=== PATIENT | male | born 1990 | race Caucasian/White ===

== ENCOUNTER 2016-12-23 08:31 | Emergency (ER) | payer BC ==
[~2016-12-23] VITALS: Ht 175.3 cm; Wt 90.0 kg
[2016-12-23 08:34] VITALS: BP 207/97; PULSE 80; RESP 16; TEMP 97.5; O2SAT 100
[2016-12-23] MEDS ORDERED: oxyCODONE/ACETAMINOPHEN 5 MG/325 MG TAB PO ONE (09:00)
[2016-12-23] MEDS ORDERED: BUPIVACAINE HCL PF 0.25% 10 ML VIAL NERV BLOCK ONE (09:00)
--- NOTE | 2016-12-23 09:04 | PD ---
HPI Chief Complaint: Oral / Dental Pain or Problem Time Seen by Provider: 08:52 Travel History International Travel<30 days: No Contact w/Intl Traveler<30days: No Traveled to known affect area: No History of Present Illness HPI 26yo M with no significant PMH presents to the ED with c/o right lower tooth pain. Pt has had a fractured tooth #30 for a long time and has gum growing over it. He has always had tooth pain but it got worst yesterday. Denies any fever, trauma, chest pain, sob, n/v, drooling, abdominal pain. Pt states he is able to eat and drink using his left side. Pt called his insurance and is now able to get dental insurance for tomorrow but is here today because of the pain. PFSH Past Medical History Hx Anticoagulant Therapy: No Diabetes: No Diminished Hearing: No Tetanus Vaccination: < 5 Years Influenza Vaccination: No Past Surgical History Surgical History: No Previous Surgery Social History Alcohol Use: No Tobacco Use: Yes (1ppd) Substance Use: No Allergies-Medications (Allergen,Severity, Reaction): Coded Allergies: No Known Allergies (Unverified , 12/23/16) Reported Meds & Prescriptions Reported Meds & Active Scripts Active Ibuprofen 600 Mg Tab 600 Mg PO Q8HR PRN Amoxicillin 500 Mg Tab 500 Mg PO BID 7 Days Review of Systems Except as stated in HPI: all other systems reviewed are Neg Physical Exam Narrative GENERAL: 26yo M in moderate distress. SKIN: Focused skin assessment warm/dry. HEAD: Atraumatic. Normocephalic. EYES: Pupils equal and round. No scleral icterus. No injection or drainage. ENT: Mouth: Tooth #31 is cavitated and tender to palpation. Tooth #30 is a fractured tooth with gum overlying it. +TTP surrounding gum. No fluctuance. NECK: Trachea midline. No JVD. CARDIOVASCULAR: Regular rate and rhythm. No murmur appreciated. RESPIRATORY: No accessory muscle use. Clear to auscultation. Breath sounds equal bilaterally. GASTROINTESTINAL: Abdomen soft, non-tender, nondistended. MUSCULOSKELETAL: No obvious deformities. No clubbing. No cyanosis. No edema. NEUROLOGICAL: Awake and alert. No obvious cranial nerve deficits. Motor grossly within normal limits. Normal speech. PSYCHIATRIC: Appropriate mood and affect; insight and judgment normal. Data Data Last Documented VS Vital Signs Date Time Temp Pulse Resp B/P Pulse Ox O2 Delivery O2 Flow Rate FiO2 12/23/16 10:33 88 16 182/62 100 Room Air 12/23/16 08:34 97.5 Orders Oxycodone-Acetamin 5-325 Mg (Percocet (12/23/16 09:00) Bupivacaine Pf 0.25% Inj (Marcaine Pf 0. (12/23/16 09:30) MDM Medical Decision Making Medical Screen Exam Complete: Yes Emergency Medical Condition: Yes Differential Diagnosis Dental caries vs. dental abscess vs. gingivitis Narrative Course 26yo M here with dental pain. Pt has had long standing dental caries and fracture tooth but has not seen dentist. Pt given percocet and an inferior alveolar block was completed for pain in tooth #30 and 31. Pain has improved after the block and pain medication. Pt is to follow up with a dentist tomorrow. Procedures Procedure Narrative Inferior alveolar dental block performed: 2cc of 0.25% bupivacaine was use for inferior alveolar block in right side. Pt tolerated procedure well. Diagnosis Primary Impression: Pain, dental Patient Instructions: General Instructions Departure Forms: Tests/Procedures Additional Instructions: Please follow up with dentist tomorrow. Return to the ED if symptoms worsen. Med/Other Pt SpecificInfo: Prescription(s) given Scripts Ibuprofen 600 Mg [id number] Mg PO Q8HR PRN (PAIN) #20 TAB Ref 0 Prov:Brianna Romero 12/23/16 Amoxicillin 500 Mg [id number] Mg PO BID 7 Days Ref 0 Prov:RomeroBrianna 12/23/16 Disposition: 01 DISCHARGE HOME Condition: Stable RomeroBrianna russell Dec 23, 2016 09:04
[2016-12-23] MEDS ORDERED: BUPIVACAINE HCL PF 0.25% 30 ML VIAL INFIL ONE (09:30)
[2016-12-23] MEDS ORDERED: AMOX500T PO (10:20)
[2016-12-23] MEDS ORDERED: IBUP-232 PO (10:20)
[2016-12-23 10:33] VITALS: BP 182/62; PULSE 88; RESP 16; O2SAT 100
== END 2016-12-23 10:34 | disposition home or self-care (01) ==
LOC: PHED 08:31
DX: K08.89 Other specified disorders of teeth and supporting structures (principal); F17.200 Nicotine dependence, unspecified, uncomplicated
CPT/HCPCS: 64400